=== PATIENT | male | born 1985 ===

== ENCOUNTER 2024-03-25 17:06 | Emergency (ER) | payer OTHER, SELFPAY ==
[2024-03-25 17:16] VITALS: BP 139/90; PULSE 97; RESP 20; TEMP 37.2; O2SAT 97
--- NOTE | 2024-03-25 17:44 | ED.EYEPROB ---
HPI - Eye Problem General Chief complaint: Eye Problems Stated complaint: Eye Problems Time Seen by Provider: 03/25/24 17:40 Source: patient and RN notes reviewed Mode of arrival: ambulatory Limitations: no limitations History of Present Illness HPI Narrative: Patient presents today reporting that he got sawdust in his eyes under his safety glasses today approximately 5 hours prior to arrival. Reports foreign body sensation to the left eye with irritation. He normally wears eyeglasses dizzy. Reports some slight blurred vision. Related Data Home Medications Medication Instructions Recorded Confirmed pantoprazole 40 mg tablet,delayed 40 mg PO DIRECTED 03/25/24 03/25/24 release Allergies Allergy/AdvReac Type Severity Reaction Status Date / Time No Known Allergies Allergy Verified 03/25/24 17:15 Review of Systems Review of Systems: CONSTITUTIONAL: Denies body aches, fever, chills, or sweats. EYES: Denies visual changes, redness, or discharge.+Foreign body sensation on left ENT: Denies rhinorrhea, congestion, sore throat, or otalgia. CARDIOVASCULAR: Denies chest pain, palpitations, or edema. RESPIRATORY: Denies cough or dyspnea. GASTROINTESTINAL: Denies abdominal pain, nausea, vomiting, or diarrhea. GENITOURINARY: Denies dysuria or hematuria. SKIN: Denies rash, itching, or wounds. MUSCULOSKELETAL: Denies back pain, joint pain, or myalgia. NEUROLOGIC: Denies headache, numbness, tingling, or weakness. PSYCH: Denies depression or anxiety. PMFSH Comments At time of signature, I have reviewed and agree with nursing past medical, surgical, social and family history unless otherwise noted. Please see nursing chart for further information. There is no relevant family history pertinent to the presenting complaint Exam Narrative: GENERAL: Well-appearing, well-nourished, and in no acute distress. HEAD: Normocephalic, atraumatic. EYES: EOMI. PERRL. Left eye: Moderately sized corneal abrasion to the 6 o'clock position under the iris with fluorescein uptake. Mildly injected conjunctiva. Lids and lashes normal. Right eye normal. ENT: Mucous membranes pink and moist. NECK: Normal AROM. CHEST: No respiratory distress. EXTREMITIES: Normal range of motion. No edema. SKIN: Warm, dry, no rash. Capillary refill normal. Normal skin turgor. NEURO: No focal deficits. Alert and oriented x3. Gait steady. PSYCH: Normal affect. No signs of depression or anxiety. Course Course Level of Care: Express Care Visit Vital Signs Vital signs: Vital Signs Temperature 99.0 F 03/25/24 17:16 Pulse Rate 97 03/25/24 17:16 Respiratory Rate 20 03/25/24 17:16 Blood Pressure 139/90 03/25/24 17:16 Pulse Oximetry 97 03/25/24 17:16 Oxygen Delivery Room Air 03/25/24 17:16 Temperature 99.0 F 03/25/24 17:16 Pulse Rate 97 03/25/24 17:16 Respiratory Rate 20 03/25/24 17:16 Blood Pressure 139/90 03/25/24 17:16 Pulse Oximetry 97 03/25/24 17:16 Oxygen Delivery Room Air 03/25/24 17:16 Reviewed Procedures Other Procedure Procedure 1: Other Procedure: Left eye was anesthetized with 1 drop of tetracaine and anesthesia was achieved. The eye was flushed with eye wash. Lid was inverted and examined. Moistened Qtip was used to sweep underneath the upper eyelid with 0 foreign bodies resulting. Cornea was dyed with fluorescein and 1 moderately sized abrasion noted. Pt tolerated procedure well. MDM - Eye Problem MDM Narrative Medical decision making narrative: Corneal abrasion noted upon with lamp exam. Prescription for Polytrim sent to pharmacy. Anticipatory guidance given. Differential Diagnosis Differential diagnosis: Likely corneal abrasion, conjunctivitis and corneal ulcer Critical Care Time Critical Care Time Critical Care Time: No Discharge Plan Discharge Clinical Impression: Abrasion of left cornea Qualifiers: Encounter type: initial encounter Qualified Roberto
[2024-03-25] MEDS: DACRIOSE EYE IRRIGATION 118 ML BOTTLE LEFT EYE (17:48)
[2024-03-25] MEDS: TETRACAINE HCL 0.5% OPHTH SOLN 4 ML BTL 1 DROP LEFT EYE (17:48)
[2024-03-25] MEDS: FLUORESCEIN SOD 1 MG/STRIP LEFT EYE (17:48)
== END 2024-03-25 18:03 | disposition home or self-care (01) ==
PROVIDERS: Emergency Provider Nurse Practitioner
DX: S05.02XA Injury of conjunctiva and corneal abrasion without foreign body, left eye, initial encounter (principal); X58.XXXA Exposure to other specified factors, initial encounter; K21.9 Gastro-esophageal reflux disease without esophagitis
CPT/HCPCS: 99213; A9270; G0463